=== PATIENT | female | born 1990 | race Hispanic/Latino ===

== ENCOUNTER 2021-05-19 03:28 | Inpatient (IN) | payer OTHER ==
[2021-05-19] MEDS ORDERED: METHYLERGONOVINE 0.2MG/ML AMP IM PRN (03:55)
[2021-05-19] MEDS ORDERED: PROMETHAZINE INJ 25 MG/ML AMP IM PRN (03:55)
[2021-05-19] MEDS ORDERED: Ringers Lactate 1,000 ML IV PRN (03:55)
[2021-05-19] MEDS ORDERED: BUTORPHANOL 1 MG/ML INJ IV PRN (03:55)
[2021-05-19] MEDS ORDERED: CARBOPROST TROME 250 MCG/ML IM PRN (03:55)
[2021-05-19] MEDS ORDERED: Ringers Lactate 1,000 ML IV SCH (04:00)
[2021-05-19] MEDS ORDERED: OXYTOCIN/LR 20 UNIT/1,000 ML BAG IV SCH (04:00)
[2021-05-19 05:15] LABS: Absolute Lymphocytes (CBC) 2.3 K/uL (0.7-4.9); Basophils % 0.3 % (0-1.3); Hematocrit 40.6 % (36.0-45.0); Lymphocytes % 19.3 % (15.3-44.8); MPV 7.9 fL (7.6-11.3); RBC Red Blood Cell Count 4.47 M/uL (3.86-4.86); Urine Appearance CLOUDY (Clear); Urine Bilirubin NEGATIVE (Negative); Urine Blood NEGATIVE (Negative); Urine Color YELLOW (Yellow); Urine Glucose NEGATIVE (Negative); Urine Protein NEGATIVE (Negative); Urine Urobilinogen 0.2 mg/dL (0.2-1.0); Urine pH 6.5 (5.0-7.0)
[2021-05-19 05:19] LABS: Urine Microscopic Reflex ORDER UMIC
[2021-05-19 05:42] LABS: Urine Bacteria 20-50 /HPF (<20)
[2021-05-19 05:43] LABS: Urine RBC NONE SEEN /HPF (NONE SEEN)
[2021-05-19 06:47] VITALS: BMI 31.8
--- NOTE | 2021-05-19 12:15 | PREOPHP ---
Date of Admission: 05/19/2021 History: A 31-year-old primigravida at 39 weeks, followed antepartum without complications. Rh posi tive, immune to rubella, negative strep, negative COVID for pre induction discussion pros and cons. Family History: Mother and maternal aunt with hypertension and maternal aunt with diabetes. Grandpa rent with cancer, site unknown. Past Medical History: No serious medical illnesses. No surgeries. Allergies: NO ALLERGIES. Medications: She is on vitamins. Social History: Does not smoke. Physical Examination: HEENT: Clear. Pupils equal, round, reactive to light and accommodation. Conjunctivae well perfused . No oral, lingual, or buccal lesions. Chest and Lungs: Clear. Heart: Without murmurs, thrills, heaves, or rubs. Breasts: Without masses on previous visits. Abdomen: Term size. Extremities: Clear without edema, cyanosis, or clubbing. Cervix is 1.5, possibly 2, 60% effaced, ve rtex, well applied at -1 station, miguel angel regularly. Baby looks good. FHTs normal, reactive. R upture of membranes, clear fluid. Assessment And Plan: We will continue with Pitocin augmentation and full labor talk given. The fausto ent will try natural at first and of course knows that if she wants epidural all she has to do is ask. Anticipate delivery sometime later today. GABRIEL/BECKY Voice ID: [id number]
--- NOTE | 2021-05-19 13:25 | PN ---
The patient is now 3 cm, 70 possibly 80% effaced, -1 to 0 station, miguel angel regularly. Baby looks good. She is doing very well with Lamaze breathing techniques, NSAID. No analgesics thus far. GABRIEL/MODOlga Voice ID: [id number] Report ID: [id number]
[2021-05-19] MEDS ORDERED: LIDOCAINE 1% MPF 30 ML VIAL SQ PRN (14:01)
[2021-05-19] MEDS ORDERED: FENTANYL CITR 100 MCG/2 ML IV ONE (14:18)
[2021-05-19] MEDS ORDERED: ROPIVACAINE HCL 0.2% 20ML AMP IV ONE (14:18)
[2021-05-19] MEDS ORDERED: 0.2% ROPIVACAINE (200 MG/100 ML) BAG EP ONE (14:29)
[2021-05-19] MEDS ORDERED: DOCUSATE NA/SENNA CONC 1 TAB PO PRN (19:40)
[2021-05-19] MEDS ORDERED: BISACODYL 10 MG RECTAL SUPP PR PRN (19:40)
[2021-05-19] MEDS ORDERED: DIPHENHYDRAMINE 25 MG TAB/CAP PO PRN (19:40)
[2021-05-19] MEDS ORDERED: IBUPROFEN 200 MG TAB PO PRN (19:40)
[2021-05-19] MEDS ORDERED: Oxycodone HCl/Acetaminophen 1 TAB TAB PO PRN ×2 (19:40)
[2021-05-19] MEDS ORDERED: ACETAMINOPHEN 500 MG TAB PO PRN (19:40)
[2021-05-19] MEDS ORDERED: METHYLERGONOVINE 0.2 MG TAB PO ONE (19:58)
[2021-05-19] MEDS ORDERED: OXYTOCIN/LR 20 UNITS/1,000 ML BAG IV SCH (20:00)
[2021-05-19] MEDS: METHYLERGONOVINE 0.2 MG TAB PO PRN ×2 (20:03→23:53)
--- NOTE | 2021-05-19 20:36 | OP ---
Surgeon: Jesus Lopez MD Keyanna Moreno is a 31-year-old primigravida 39 weeks, delivered of a 6 pounds 15 ounces male inf ant, spontaneous delivery. After about an hour and half second stage, nuchal cord loosely x1. s 9 and 9. During the labor, Lamaze breathing techniques until about 5 cm when she requested and rec eived epidural anesthesia. The epidural made her so numbed, she could not feel, could not move her l egs. It was at 10 maintenance dose, we moved it to 8 and 6 and subsequently turned it off. She actu ally had about a half an hour of effective good pushing, but the epidural still was effective as afte r the delivery, there were 3 first-degree lacerations 1 on either side of the introitus and one at th e posterior fourchette. All repaired with 2-0 chromic, no local necessary. Schultze delivery of the placenta. Mild uterine hypertonus 0.2 mg of Methergine IM as well as IV drip Pitocin and massage. Estimated blood loss possibly 500 cc. Methergine ordered orally every 4 hours starting in 30 minutes for 4 more doses. We will keep the IVs until tomorrow morning. We will monitor closely for bladder atony and putting the Busch if necessary. Final Diagnoses: Term intrauterine . Vaginal delivery. Nuchal cord loosely. Epidural ane sthesia. Mild uterine hypotonus. The parent aide called, but did not arrive until well after the d elivery. GABRIEL/BECKY Voice ID: [id number] Report ID: [id number]
--- NOTE | 2021-05-19 20:45 | PN ---
Epidural is in place and the patient so numb, she cannot feel anything and cannot even move her legs, will go down from 10 to 8 on maintenance dose and possibly further if necessary. Baby's variability is looking better at this point. No decelerations. She is now 6 to 6.5, 90% effaced, baby is strai ght occiput posterior at about -1 station. She will start doing again pelvic rocks to try to get the baby to rotate. I think the baby rotates we are in the active phase and we should see rapid progres s. We will check her again in about 45 minutes or so. GABRIEL/BECKY Voice ID: [id number] Report ID: [id number]
[2021-05-20 01:03] LABS: RPR (Rapid Plasma Reagin) NON-REACT (NON-REACT)
[2021-05-20] MEDS: METHYLERGONOVINE 0.2 MG TAB PO PRN (03:53)
--- NOTE | 2021-05-20 10:39 | DS ---
Hospital Course: A 31-year-old, primigravida, at 39 weeks, delivered of a 6-pound 15-ounce male infa nt, Apgars 9 and 9. Loose nuchal cord x1. Epidural anesthesia. Three small first-degree laceration s, 1 on either side of the introitus and 1 at the posterior fourchette, all sutured with 2-0 chromic. Schultze delivery of the placenta, which inspected and noted to be intact. Mild uterine hypertonus . A 0.2 mg of Methergine, IV drip Pitocin, and massage. Estimated blood loss 450, possibly 500 cc. Rh positive, immune to rubella, strep negative, COVID negative. Tolerated all procedures well. Pos tpartum; afebrile, ambulating, and voiding. Lochia is normal. She will see [employer] myra malik If [employer] releases baby late this evening, we will let her go home. Otherwise, probably le t her go home tomorrow morning. Full instructions to report to my office in 6 weeks to report prior to that any fever, severe pain, heavy bleeding, or any other type of problems. She requires no analg esics and in fact has had no analgesics since the delivery. She has had her immunizations. She has no post epidural problems. Doing quite well. Final Diagnoses: Term intrauterine at 39 weeks, vaginal delivery, epidural anesthesia, mil d uterine hypotonus. GABRIEL/BECKY Voice ID: [id number] Report ID: [id number]
--- NOTE | 2021-05-20 14:51 | PN ---
The patient is now complete. She is still a so numb she can't really feel much of anything. We turn ed the epidural from 10 to 8 and then from 8 to 6. The baby is at least +1 station, has rotated into an anterior position. If we can just get a coordinated pushing, I think we will have the baby in re latively short order. GABRIEL/BECKY Voice ID: [id number] Report ID: [id number]
[2021-05-20 20:05] VITALS: BP 107/53; TEMP 97.7
[2021-05-24 04:40] LABS: HBsAG Nonreactive (Nonreactive)
== END 2021-05-20 21:30 | disposition home health service (06) | DRG 807 ==
LOC: 2ND-WC 03:28
PROVIDERS: ADMIT Specialist; ATTEND Specialist
PROC: 10E0XZZ Delivery of Products of Conception, External Approach (ICD-10-PCS; principal; 2021-05-19)
PROC: 0HQ9XZZ Repair Perineum Skin, External Approach (ICD-10-PCS; 2021-05-19)
PROC: 10907ZC Drainage of Amniotic Fluid, Therapeutic from Products of Conception, Via Natural or Artificial Opening (ICD-10-PCS; 2021-05-19)
DX: O70.0 First degree perineal laceration during delivery (principal); Z37.0 Single live birth; O62.2 Other uterine inertia; Z3A.39 39 weeks gestation of pregnancy
CPT/HCPCS: 36415; 81003; 81015; 85025; 86592; 86850; 86900; 86901; 87086; 87088; 87340; J2590; J3010; J7120